=== PATIENT | female | born 1950 | race Caucasian/White ===

== ENCOUNTER 2018-10-29 11:17 | Emergency (ER) | payer MEDICARE, BC ==
[2018-10-29 13:17] VITALS: BP 141/58
[2018-10-29] MEDS ORDERED: Ketorolac INJ* 30 MG/ML 1 ML VIAL IM ONE (13:31)
--- NOTE | 2018-10-29 13:39 | UC ---
Lower Extremity/Ankle HPI - HPI Summary HPI Summary: Patient is from out of town, she has a history of fibromyalgia. complaining of a pain behind her right knee. states it started after her chiropractor adjusted her neck. last week. there is no swelling redness, no change in pain with walking. - History of Current Complaint Chief Complaint: UCLowerExtremity Stated Complaint: RIGHT KNEE PAIN - 9 DAYS Time Seen by Provider: 10/29/18 13:16 Hx Obtained From: Patient ?: No Onset/Duration: Sudden Onset, Lasting Days - 7 Severity Initially: Mild Severity Currently: Mild Pain Intensity: 4 Aggravating Factor(s): Nothing Alleviating Factor(s): Nothing Able to Bear Weight: No - Allergies/Home Medications Allergies/Adverse Reactions: Allergies Allergy/AdvReac Type Severity Reaction Status Date / Time No Known Allergies Allergy Verified 10/29/18 13:17 Home Medications: Home Medications ALPRAZolam [Alprazolam ER] 1 mg PO QID PRN 10/29/18 [History Confirmed 10/29/18] Atomoxetine HCl [Strattera] 1 cap PO DAILY 10/29/18 [History Confirmed 10/29/18] Azelastine/Fluticasone YUKI(NF [Dymista(NF)] 1 spray BOTH NARES DAILY 10/29/18 [ History Confirmed 10/29/18] Budesonide/Formote 160/4.5(NF) [Symbicort 160/4.5 (NF)] 1 puff INH BID 10/29/18 [History Confirmed 10/29/18] Duloxetine HCl [Cymbalta] 20 mg PO DAILY 10/29/18 [History Confirmed 10/29/18] Fluoxetine HCl [Prozac] 20 mg PO DAILY 10/29/18 [History Confirmed 10/29/18] Glycopyrrolate [Seebri Neohaler] 1 puff INH BID 10/29/18 [History Confirmed ] Immune Globul G (IgG)/Glycine [Gamastan S-D Vial] 1 each SUBCUT MONTHLY [History Confirmed 10/29/18] Montelukast Sodium 10 mg PO DAILY 10/29/18 [History Confirmed 10/29/18] Pregabalin [Lyrica] 100 mg PO DAILY 10/29/18 [History Confirmed 10/29/18] rOPINIRole TAB* [Requip*] 6 mg PO BID 10/29/18 [History Confirmed 10/29/18] PMH/Surg Hx/FS Hx/Imm Hx Previously Healthy: Yes - Surgical History Surgical History: Yes Surgery Procedure, Year, and Place: T& A. BILATERAL THUMB - Family History Known Family History: Negative: Cardiac Disease, Hypertension - Social History Alcohol Use: None Substance Use Type: None Smoking Status (MU): Never Smoked Tobacco Review of Systems All Other Systems Reviewed And Are Negative: Yes Constitutional: Positive: Negative Skin: Positive: Negative Eyes: Positive: Negative ENT: Positive: Negative Respiratory: Positive: Negative Cardiovascular: Positive: Negative Gastrointestinal: Positive: Negative Genitourinary: Positive: Negative Motor: Positive: Negative Neurovascular: Positive: Negative Musculoskeletal: Positive: Arthralgia, Myalgia Neurological: Positive: Negative Psychological: Positive: Negative Is Patient Immunocompromised?: No Physical Exam Triage Information Reviewed: Yes Appearance: Well-Appearing, Well-Nourished, Pain Distress Vital Signs: Initial Vital Signs Temp 97.2 F 10/29/18 13:13 Pulse 79 10/29/18 13:13 Resp 16 10/29/18 13:13 BP 141/58 10/29/18 13:13 Pulse Ox 98 10/29/18 13:13 Vital Signs Reviewed: Yes Eye Exam: Normal ENT Exam: Normal Dental Exam: Normal Neck exam: Normal Respiratory Exam: Normal Cardiovascular Exam: Normal Abdominal Exam: Normal Bowel Sounds: Positive: Present Musculoskeletal Exam: Normal Musculoskeletal: Positive: Strength Intact, ROM Intact, No Edema, Other: - palpable pain on posterior attachement of the fibula, muscle hypertonicity noted Neurological Exam: Normal Psychological Exam: Normal Skin Exam: Normal Lower Extremity Course/Dx - Course Course Of Treatment: hx obtained, exam performed ,meds reviewed, ROM assessed, educated on the need for heat and stretching. Toradol shot given for pain and inflammation as patient stated she needed something for the pain she could not go on with this anymore. recommend follow up with her doctor when sharlene returns home to [place]. - Differential Dx/Diagnosis Differential Diagnosis/HQI/PQRI: Contusion, Sprain, Strain Provider Diagnosis: Muscle hypertonicity Discharge - Sign-Out/Discharge Documenting (check all that apply): Patient Departure All imaging exams completed and their final reports reviewed: No Studies - Discharge Plan Condition: Stable Disposition: HOME Patient Education Materials: Leg Pain (ED) Referrals: No Primary Care Phys,NOPCP [Primary Care Provider] - Additional Instructions: 1. Do not use ibuprofen or Aleve for the next 8 hours, may start again around 9: 30 Pm. 2. Stretch the leg frequently throughout the day 3. apply heat before stretching 4. FOllow up with your doctor when you return home if not improving. - Billing Disposition and Condition Condition: STABLE Disposition: Home - Attestation Statements Provider Attestation: Per institutional requirements, I have reviewed the chart, however, I was not consulted specifically or made aware of this patient by the midlevel provider. I did not personally evaluate, interact with , or disposition this patient.
== END 2018-10-29 13:59 | disposition home or self-care (01) ==
LOC: UCCORT 11:17
DX: M62.89 Other specified disorders of muscle (principal)
CPT/HCPCS: 96372; 99202; G0463; J1885